=== PATIENT | female | born 1935 ===

== ENCOUNTER 2016-08-24 15:18 | Emergency (ER) | payer MEDICARE, OTHER ==
--- NOTE | 2016-09-05 21:14 | ER ---
ADMIT: 08/24/2016 RM/LOC: ER [facility] MR#: [id number] [address] [facility] [address] [place], [place] [id number] SILVER RUEDA [address] [place] [address] Emergency Room Report SEX: F AGE: 81 : 1935 DATE: 08/24/2016 ADDENDUM: CHIEF COMPLAINT: Just aches all over. HISTORY OF PRESENT ILLNESS: This is a 81-year-old who just had some vague complaints, she feels like her hair is falling out. She has productive cough. She just has generalized body aches. COURSE IN THE EMERGENCY ROOM: CBC, CMP, UA, and chest x-ray was done, everything is essentially negative. She did receive a liter of fluids. I gave her fentanyl 25 mcg IV, this relieved her muscle aches. When I asked her to focus on a main spot of pain, she complains of her lower back. Again fentanyl helped with that pain. CBC was normal except for hemoglobin of 11.3. CMP is normal except for sodium 146, glucose was slightly low at 66. She received a sandwich and juice for this. Creatinine was normal. Liver functions normal. GFR is 71. Her TSH and T4 are normal. Urine is normal except for 1000 glucose. She is being discharged home. Told her use Tylenol for her body aches, push fluids, and follow up as needed. FREDI Rascon / Chandra Antonio MD / sudarshanl JOB #: [id number] CC: Chandra Antonio MD, Attending Physician
== END 2016-08-24 18:50 | disposition home or self-care (01) ==
LOC: ER 15:18
DX: M79.1 Myalgia (principal); E78.00 Pure hypercholesterolemia, unspecified; E11.9 Type 2 diabetes mellitus without complications; Z79.899 Other long term (current) drug therapy